=== PATIENT | male | born 1975 ===

== ENCOUNTER 2019-11-13 08:39 | Emergency (ER) | payer BC, OTHER ==
[2019-11-13 09:06] VITALS: BP 145/91; PULSE 79
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
== END 2019-11-13 09:45 | disposition home or self-care (01) ==
LOC: CC.ED 08:39
DX: M94.0 Chondrocostal junction syndrome [Tietze] (principal); F17.210 Nicotine dependence, cigarettes, uncomplicated; Z88.0 Allergy status to penicillin; Z79.899 Other long term (current) drug therapy
CPT/HCPCS: 71046; 99284-25